=== PATIENT | female | born 1995 | race Caucasian/White ===

== ENCOUNTER 2016-07-18 19:30 | Observation (INO) | payer OTHER ==
[2016-07-18 21:43] VITALS: BP 126/76; PULSE 82; RESP 18; TEMP 98.4
== END 2016-07-18 21:20 | disposition home or self-care (01) ==
LOC: SPU 19:30
PROVIDERS: ADMIT Obstetrics & Gynecology; ATTEND Obstetrics & Gynecology
DX: Z34.03 Encounter for supervision of normal first pregnancy, third trimester (principal); Z3A.30 30 weeks gestation of pregnancy
CPT/HCPCS: 81002; G0378

== ENCOUNTER 2016-08-26 23:10 | Observation (INO) | payer OTHER ==
[~2016-08-26] VITALS: Ht 165.1 cm; Wt 81.6 kg
[2016-08-27 00:24] VITALS: BP_SYST 122
[2016-08-27] MEDS ORDERED: DIPHENOXYLATE HCL/ATROP SULF 2.5 MG TAB PO ONE (01:00)
== END 2016-08-27 01:20 | disposition home or self-care (01) ==
LOC: SPU 23:10
PROVIDERS: ADMIT Specialist; ATTEND Specialist
DX: O26.893 Other specified pregnancy related conditions, third trimester (principal); R10.9 Unspecified abdominal pain; Z3A.36 36 weeks gestation of pregnancy
CPT/HCPCS: 81002; G0378 ×2

== ENCOUNTER 2017-08-09 11:57 | Emergency (ER) | payer OTHER ==
[~2017-08-09] VITALS: Ht 165.1 cm; Wt 58.1 kg
[2017-08-09 12:15] VITALS: BP_SYST 157
[2017-08-09] MEDS ORDERED: BACITRACIN 1 GM OINT TP ONE ×2 (15:30→16:10)
[2017-08-09] MEDS ORDERED: PREDNISONE 20 MG TABLET PO ONE (16:00)
[2017-08-09] MEDS ORDERED: DIPHENHYDRAMINE HCL 50 MG CAPSULE PO ONE (16:00)
[2017-08-09 16:25] VITALS: BP_SYST 132
== END 2017-08-09 16:25 | disposition home or self-care (01) ==
LOC: SED 11:57
DX: S62.636A Displaced fracture of distal phalanx of right little finger, initial encounter for closed fracture (principal); S61.411A Laceration without foreign body of right hand, initial encounter; S09.90XA Unspecified injury of head, initial encounter; J45.909 Unspecified asthma, uncomplicated; Z88.1 Allergy status to other antibiotic agents; Z91.040 Latex allergy status; Z88.0 Allergy status to penicillin; Z91.013 Allergy to seafood; Z91.048 Other nonmedicinal substance allergy status; V12.4XXA Pedal cycle driver injured in collision with two- or three-wheeled motor vehicle in traffic accident, initial encounter; Y93.55 Activity, bike riding; Y92.488 Other paved roadways as the place of occurrence of the external cause; Y99.8 Other external cause status
CPT/HCPCS: 29130; 73080; 73110; 73130; 99284; J7512; Q0163

== ENCOUNTER 2019-07-02 20:51 | Emergency (ER) | payer OTHER ==
[~2019-07-02] VITALS: Ht 162.6 cm; Wt 61.2 kg
[2019-07-02 20:57] VITALS: BP_SYST 108
--- NOTE | 2019-07-02 20:58 | NUR ---
plPlaced in room h1 . Placed on apprentice jockey, blood pressure machine and pulse oximeter. To gown for exam. Side rails up.
[2019-07-02] MEDS ORDERED: IPRATROPIUM/ALBUTEROL SULFATE 3 ML AMPUL.NEB (DUONEB) INH ONE (21:00)
--- NOTE | 2019-07-02 21:00 | NUR ---
Pt AAOx4 ambulated into ED c/o sob, difficulty breathing, cough prior to arrival. Pt pale and diaphoretic, labored breathing. States she had 2 albuterol treatments with no relief. Dr. Silverio to order breathing tx. Will continue to monitor.
--- NOTE | 2019-07-02 21:02 | NUR ---
ER Dr. Silverio at bedside examining patient.
--- NOTE | 2019-07-02 21:06 | NUR ---
RT at bedside administering breathing treatment
--- NOTE | 2019-07-02 21:19 | NUR ---
Xray at bedside. Pt tolerated well.
[2019-07-02 21:29] LABS: BASOPHILS # (AUTO) 0.1 K/uL (0.0-0.2); BASOPHILS % (AUTO) 0.7 % (0.0-2.0); EOSINOPHILS # (AUTO) 0.8 K/uL (0.0-0.4); EOSINOPHILS % (AUTO) 7.6 % (0.0-4.0); HEMOGLOBIN 14.7 g/dL (12.0-16.0); LYMPHOCYTES # (AUTO) 3.4 K/uL (1.0-5.5); LYMPHOCYTES % (AUTO) 31.3 % (20.5-51.5); MEAN CORPUSCULAR HEMOGLOBIN 31 pg (27-31); MEAN CORPUSCULAR HGB CONC 34 % (32-36); MEAN CORPUSCULAR VOLUME 92 fL (79.0-98.0); MONOCYTES # (AUTO) 0.8 K/uL (0.0-1.0); MONOCYTES % (AUTO) 6.9 % (1.7-9.3); NEUTROPHILS # (AUTO) 5.9 K/uL (1.8-7.7); NEUTROPHILS % (AUTO) 53.5 % (40.0-70.0); PLATELET COUNT (AUTO) 258 K/uL (130-430); RED BLOOD CELL COUNT(AUTO) 4.79 MIL/uL (4.2-6.2); RED CELL DISTRIBUTION WIDTH 12.4 % (9.0-15.0)
--- NOTE | 2019-07-02 21:31 | NUR ---
Pt reports mild relief of SOB. Pt requests steroid. Dr. Silverio notified.
--- NOTE | 2019-07-02 21:43 | NUR ---
Solumedrol 125mg administered to R deltoid. Pt crying stating "My arm hurts." Ice pack provided to pt. Pt tolerated well.
[2019-07-02] MEDS ORDERED: methylPREDNISolone SOD SUCC/PF 62.5 MG/ML VIAL IM ONE (21:45)
[2019-07-02] MEDS ORDERED: LORA10TA7 PO (21:57)
[2019-07-02] MEDS ORDERED: ALBMDI INH (21:57)
--- NOTE | 2019-07-02 21:57 | NUR ---
Medication reconciliation completed with information provided by family at bedside. Any prior medication reconciliation on file was reviewed and corrected.
[2019-07-02] MEDS ORDERED: AZITHROMYCIN 250 MG TABLET PO ONE (22:00)
[2019-07-02] MEDS ORDERED: IPRATROPIUM BROM 0.5 MG/2.5 ML VIAL.NEB (ATROVENT) INH ONE (22:00)
--- NOTE | 2019-07-02 22:08 | NUR ---
RT at bedside administering breathing treatment. Pt tolerated well.
--- NOTE | 2019-07-02 23:29 | NUR ---
Pt laying in bed comfortably. Parents at bedside.
[2019-07-03] MEDS ORDERED: IBUPROFEN 600 MG TABLET PO ONE (00:15)
[2019-07-03] MEDS ORDERED: ALBUTEROL SULFATE 0.083% 2.5 MG/3 ML VIAL.NEB INH ONE (00:15)
[2019-07-03 00:48] LABS: BARBITURATE, URINE NEGATIVE (NEG <=200); BENZODIAZEPINE, URINE NEGATIVE (NEG <=150); CANNABINOID, URINE POSITIVE (NEG <=50); COCAINE, URINE NEGATIVE (NEG <=150); METHAMPHETAMINES SCREEN,URINE NEGATIVE (NEG <=500); OPIATE, URINE NEGATIVE (NEG <=100); PHENCYCLIDINE SCREEN,URINE NEGATIVE (NEG <=25); UR TRICYCLIC ANTIDEPRESSANTS NEGATIVE (NEG <=300); URINE AMPHETAMINE NEGATIVE (NEG <=500); URINE METHADONE NEGATIVE (NEG <=200); URINE OXYCODONE SCREEN NEGATIVE (NEG <=100); URINE PROPOXYPHENE SCREEN NEGATIVE (NEG <=300)
--- NOTE | 2019-07-03 01:05 | NUR ---
Patient to be transferred to [facility]. Is being transferred due to higher level of care. Receiving facility has accepting physician and available space. ER physician has signed transfer form. Patient or responsible green party has agreed to transfer and signed form. Patient belongings inventoried and will be sent with patient. Copy of nursing notes, lab reports, EKG, Physicians Orders and X-rays to be sent with patient. Report called to Amp RN at receiving facility. Receiving physician is Dr. Shen. Ambulance service has been called for transfer. ETA is [id number].
[2019-07-03 01:08] VITALS: BP_SYST 130
== END 2019-07-03 01:05 | disposition short-term general hospital (02) ==
LOC: SED 20:51
DX: J45.901 Unspecified asthma with (acute) exacerbation (principal); Z91.040 Latex allergy status; Z91.013 Allergy to seafood; Z88.1 Allergy status to other antibiotic agents; Z88.0 Allergy status to penicillin; Z88.8 Allergy status to other drugs, medicaments and biological substances
CPT/HCPCS: 36415; 71045; 80307; 85025; 94640 ×2; 96372; 99285; J2930; J7613; J7620; Q0144

== ENCOUNTER 2020-02-27 20:03 | Emergency (ER) | payer OTHER ==
[~2020-02-27] VITALS: Ht 167.6 cm; Wt 61.2 kg
[~2020-02-27 20:03] MED LIST: ALBMDI INH; LORA10TA7 PO
--- NOTE | 2020-02-27 20:04 | NUR ---
Patient to ER bed 06 to gown for evaluation. Side rails up.
[2020-02-27 20:09] VITALS: BP_SYST 125; BP_SYST 132
[2020-02-27] MEDS ORDERED: methylPREDNISolone SOD SUCC/PF 62.5 MG/ML VIAL IVP ONE (20:15)
[2020-02-27] MEDS ORDERED: NACL 0.9% 1,000 ML IV ONE (20:15)
[2020-02-27] MEDS ORDERED: LevALBUTEROL HCL 1.25 MG/0.5 ML *CONC.* VIAL.NEB (XOPENEX CONC.) INH ONE ×3 (20:15→23:15)
[2020-02-27] MEDS ORDERED: IPRATROPIUM BROM 0.5 MG/2.5 ML VIAL.NEB (ATROVENT) INH ONE ×2 (20:15→20:36)
--- NOTE | 2020-02-27 20:22 | NUR ---
RT AT THE BEDSIDE WITH BREATHING TX
--- NOTE | 2020-02-27 20:25 | NUR ---
PT PRESENTS FROM HOME WITH DIFFICULTY BREATHING THAT STARTED LAST NIGHT AND HAS NOT BEEN IMPROVED BY HER HOME ASTHMA MEDICATIONS. STATES SHE WAS AT WORK TODAY AND HAD TO LEAVE EARLY DUE TO SOB. PRESENTS ANXIOUS AND TEARFUL WITH TACHYPNEA, OTHER V/S STABLE. AAOX4. REPORTS HX OF ASTHMA
--- NOTE | 2020-02-27 21:30 | NUR ---
PT RESTING IN BED. NO S/SX OF DISTRESS. V/S STABLE
--- NOTE | 2020-02-27 23:28 | NUR ---
RT AT THE BEDSIDE WITH BREATHING TX
[2020-02-28 00:20] VITALS: BP_SYST 133
--- NOTE | 2020-02-28 00:20 | NUR ---
Patient given written and verbal discharge instructions and verbalizes understanding. ER MD discussed with patient the results and treatment provided. Patient in stable condition. ID arm band removed. IV catheter removed intact and dressing applied, no active bleeding. Rx of PREDNISONE given. Patient educated on pain management and to follow up with PMD. Pain Scale 0/10. Opportunity for questions provided and answered. Medication side effect fact sheet provided.
== END 2020-02-28 00:20 | disposition home or self-care (01) ==
LOC: SED 20:03
DX: J45.901 Unspecified asthma with (acute) exacerbation (principal); Z88.0 Allergy status to penicillin; Z88.1 Allergy status to other antibiotic agents; Z91.013 Allergy to seafood; Z91.040 Latex allergy status; Z88.8 Allergy status to other drugs, medicaments and biological substances
CPT/HCPCS: 71046; 81025; 94640; 96361; 96374; 99285; J2930; J7030; J7612

== ENCOUNTER 2021-04-16 13:23 | Emergency (ER) | payer OTHER ==
[~2021-04-16] VITALS: Ht 165.1 cm; Wt 63.5 kg
[2021-04-16 13:40] VITALS: BP_SYST 145
[2021-04-16] MEDS ORDERED: IBUP-1971 PO ×2 (17:11→17:26)
[2021-04-16] MEDS ORDERED: ZIT250 PO ×2 (17:11→17:26)
[2021-04-16] MEDS ORDERED: IBUPROFEN 800 MG TABLET PO ONE (17:15)
[2021-04-16 17:29] VITALS: BP_SYST 121
== END 2021-04-16 17:29 | disposition home or self-care (01) ==
LOC: SED 13:23
DX: H66.91 Otitis media, unspecified, right ear (principal); J45.909 Unspecified asthma, uncomplicated; Z88.1 Allergy status to other antibiotic agents; Z91.013 Allergy to seafood; Z88.8 Allergy status to other drugs, medicaments and biological substances; Z79.899 Other long term (current) drug therapy
CPT/HCPCS: 99283

== ENCOUNTER 2022-06-26 08:48 | Emergency (ER) | payer OTHER ==
[~2022-06-26] VITALS: Ht 167.6 cm; Wt 72.6 kg
[~2022-06-26 08:48] MED LIST changes: +IBUP-1971 PO; +ZIT250 PO
[2022-06-26 08:56] VITALS: BP_SYST 131
[2022-06-26] MEDS ORDERED: BUDESONIDE 0.5 MG/2 ML AMPUL.NEB INH ONE (09:15)
[2022-06-26] MEDS ORDERED: IPRATROPIUM/ALBUTEROL SULFATE 3 ML AMPUL.NEB (DUONEB) INH ONE (09:15)
[2022-06-26] MEDS ORDERED: MAGNESIUM SULFATE 1 GM/2 ML VIAL IVP ONE (09:15)
[2022-06-26] MEDS ORDERED: ACETAMINOPHEN 500 MG TABLET PO ONE (11:00)
[2022-06-26] MEDS ORDERED: BUDE8.435 NS (11:39)
[2022-06-26 11:51] VITALS: BP_SYST 130
== END 2022-06-26 11:50 | disposition home or self-care (01) ==
LOC: SED 08:48
DX: O99.512 Diseases of the respiratory system complicating pregnancy, second trimester (principal); J06.9 Acute upper respiratory infection, unspecified; B97.89 Other viral agents as the cause of diseases classified elsewhere; Z3A.15 15 weeks gestation of pregnancy; Z88.0 Allergy status to penicillin; Z88.1 Allergy status to other antibiotic agents; Z91.041 Radiographic dye allergy status; Z91.040 Latex allergy status; Z79.899 Other long term (current) drug therapy
CPT/HCPCS: 93005; 94640; 94760; 99283; 96374; J3475; J7626